=== PATIENT | male | born 1945 | race Caucasian/White ===

== ENCOUNTER 2022-10-13 13:30 | Observation (INO) | payer MEDICARE, MEDICAID ==
[2022-10-13] MEDS ORDERED: Sodium Chloride 0.9% 10 ML Syringe FLUSH PRN (14:11)
[2022-10-13 14:33] LABS: BASOPHILS ABSOLUTE AUTO 0.04 K/uL (0.00-0.20); BASOPHILS PERCENT AUTO 0.6 % (0.0-2.0); EOSINOPHILS ABSOLUTE AUTO 0.08 K/uL (0.00-0.50); EOSINOPHILS PERCENT AUTO 1.2 % (0.0-5.0); HEMATOCRIT 39.9 % (39.0-49.0); HEMOGLOBIN 14.2 g/dL (13.1-16.8); LYMPHOCYTES ABSOLUTE AUTO 2.04 K/uL (0.50-3.50); LYMPHOCYTES PERCENT AUTO 29.9 % (10.0-50.0); MEAN CORPUSCULAR HEMOGLOBIN 32.1 pg (28.2-33.3); MEAN CORPUSCULAR HGB CONC 35.6 g/dL (31.7-36.0); MEAN CORPUSCULAR VOLUME 90.1 fL (84.0-98.0); MONOCYTES ABSOLUTE AUTO 0.67 K/uL (0.00-1.00); MONOCYTES PERCENT AUTO 9.8 % (2.0-14.0); NEUTROPHILS ABSOLUTE AUTO 3.99 K/uL (1.40-7.00); NEUTROPHILS PERCENT AUTO 58.5 % (45.0-80.0); PLATELET COUNT,PLT 115 K/uL (150-350); RED BLOOD CELL COUNT 4.43 M/uL (4.33-5.41); RED CELL DISTRIBUTION WIDTH 13.4 % (11.2-14.1); WHITE BLOOD CELL COUNT,WBC 6.8 K/uL (4.0-10.2)
[2022-10-13 14:54] LABS: ALBUMIN 3.5 g/dL (3.4-5.0); ANION GAP 13.3 meq/L (7-15); BILIRUBIN TOTAL 0.6 mg/dL (0.2-1.0); CALCIUM 8.9 mg/dL (8.5-10.1); CARBON DIOXIDE,CO2 24.7 mmol/L (21.0-32.0); CREATININE 0.83 mg/dL (0.51-1.17); EST CRCL DRUG DOSING (CG) 63.3 mL/min; PROTEIN TOTAL,TP 6.8 g/dL (6.4-8.2)
[2022-10-13] MEDS ORDERED: Iopamidol 612 MG/ML 100 ML Bottle IVPUSH ONE (15:01)
[2022-10-13 16:10] LABS: APPEARANCE,URINE CLEAR; BILIRUBIN,URINE SMALL (NEGATIVE); COLOR,URINE YELLOW; GLUCOSE,URINE NEGATIVE (NEGATIVE); KETONES,URINE TRACE mg/dL (NEGATIVE); LEUKOCYTE ESTERASE,URINE TRACE (NEGATIVE); NITRITE,URINE NEGATIVE (NEGATIVE); OCCULT BLOOD,URINE NEGATIVE (NEGATIVE); PROTEIN,URINE 30 mg/dL (NEGATIVE)
[2022-10-13 16:11] LABS: BACTERIA,URINE RARE /HPF (NONE TO FEW); RBC,URINE 0-5 /HPF
[2022-10-13 16:14] LABS: AMPHETAMINES SCREEN, URINE NEGATIVE (NEGATIVE); BARBITURATE SCREEN,URINE NEGATIVE (NEGATIVE); BENZODIAZEPINES SCREEN,URINE NEGATIVE (NEGATIVE); COCAINE METABOLITES,URINE NEGATIVE (NEGATIVE); EDDP,URINE SCREEN NEGATIVE (NEGATIVE); METHAMPHETAMINES SCREEN, URINE NEGATIVE (NEGATIVE); TCA SCREEN,URINE NEGATIVE (NEGATIVE); THC SCREEN,URINE 50 NG/ML NEGATIVE (NEGATIVE)
[2022-10-13 16:15] LABS: BUPRENORPHINE SCREEN,URINE NEGATIVE (NEGATIVE); OXYCODONE SCREEN,URINE NEGATIVE (NEGATIVE)
[2022-10-13] MEDS ORDERED: Sodium Chloride 0.9% 1,000 ML IV ONE (16:21)
[2022-10-13] MEDS ORDERED: ALPRAZolam 0.25 MG Tab PO ONE (16:22)
[2022-10-13] MEDS ORDERED: ALPRAZolam 0.25 MG Tab PO PRN (17:55)
[2022-10-13] MEDS ORDERED: Sodium Chloride 0.9% 1,000 ML IV SCH (19:00)
[2022-10-14 07:40] LABS: ANION GAP 6.7 meq/L (7-15); CALCIUM 7.9 mg/dL (8.5-10.1); CARBON DIOXIDE,CO2 23.3 mmol/L (21.0-32.0); CREATININE 0.66 mg/dL (0.51-1.17); EST CRCL DRUG DOSING (CG) 79.6 mL/min; POTASSIUM,K 4.3 mmol/L (3.5-5.1)
[2022-10-14] MEDS ORDERED: Aspirin 325 MG Tab PO ONE (18:51)
[2022-10-14] MEDS ORDERED: Lactulose Soln 10 GM/15 ML 30 ML UD Cup PO ONE (18:55)
[2022-10-14] MEDS ORDERED: Bisacodyl 5 MG Tab PO ONE (18:56)
[2022-10-14] MEDS ORDERED: Tamsulosin 0.4 MG Cap.ER PO ONE (19:12)
[2022-10-14] MEDS ORDERED: ALPRAZolam 0.25 MG Tab PO PRN (19:27)
[2022-10-14] MEDS: Citalopram 20 MG Tab PO SCH (19:31)
[2022-10-14] MEDS: Tamsulosin 0.4 MG Cap.ER PO SCH (19:35)
[2022-10-15] MEDS ORDERED: Lactulose Soln 10 GM/15 ML 30 ML UD Cup PO ONE (06:00)
[2022-10-15] MEDS: Citalopram 20 MG Tab PO SCH (07:57)
[2022-10-15] MEDS: Tamsulosin 0.4 MG Cap.ER PO SCH ×2 (07:57→08:00)
[2022-10-15 12:53] VITALS: BP 103/65; PULSE 73
[2022-10-16 09:47] LABS: HIV SCREEN 4TH GENERATION WRFX Non Reactive (Non Reactive)
== END 2022-10-15 13:50 | disposition home or self-care (01) ==
LOC: LL.ED 13:30 → LL.MS 17:11
PROVIDERS: ADMIT Emergency Medicine; ATTEND Emergency Medicine
DX: R63.4 Abnormal weight loss (principal); R94.6 Abnormal results of thyroid function studies; E05.90 Thyrotoxicosis, unspecified without thyrotoxic crisis or storm; K59.00 Constipation, unspecified; F32.A Depression, unspecified; F17.210 Nicotine dependence, cigarettes, uncomplicated; Z79.82 Long term (current) use of aspirin; Z79.899 Other long term (current) drug therapy
CPT/HCPCS: 36415; 70450; 71260; 74177; 80048; 80053; 80305-QW; 80307; 81001; 83605; 83735; 84153; 84439; 84443; 85025; 87086; 87389; 99284; A9270-GY; J7030; Q9967